=== PATIENT | male | born 1990 | race Caucasian/White ===

== ENCOUNTER 2025-05-19 17:38 | Observation (INO) | payer BC, SELFPAY ==
[2025-05-19 17:39] VITALS: BMI 43.7
--- NOTE | 2025-05-19 17:43 | EKG_ITS ---
[facility] Test Date: 2025-05-19 Pat Name: ALEJANDRO CESPEDES Department: Room: - Gender: Male Database Security Expert: : [id number] Requested By: Romy Garcia Order Number: [id number] Reading MD: Romy Garcia Measurements Intervals [place] Rate: 90 P: 44 NH: 156 QRS: 23 QRSD: 86 T: 38 QT: 362 QTc: 444 Interpretive Statements SINUS RHYTHM LOW QRS VOLTAGE IN PRECORDIAL LEADS [QRS DEFLECTION < 1.0 mV IN CHEST LEADS] No previous ECG available for comparison /[id number]/[email or web address]/[id number]
[2025-05-19 17:49] VITALS: BP 150/83; BP 186/118; PULSE 103; RESP 26; TEMP 36.7; O2SAT 100
--- NOTE | 2025-05-19 17:50 | XR_ITS ---
Examination: CTA chest, with intravenous contrast. CTA abdomen, with intravenous contrast. CTA pelvis, with intravenous contrast. 2-D sagittal and coronal reconstructions. 3-D reconstructions. Date and time of exam: May 19, 2025, 1838 hours INDICATIONS: Chest pain flank pain right lower abdominal pain today CTDI vol (mgy) 47.8 DLP (MGycm) 1157 Technique: Multiple CTA images, 2.0 mm slice thickness, obtained chest, abdomen, pelvis, with the high-resolution 64 slice scanner. 100 cc Isovue-370 is administered intravenously. Sagittal and coronal 2-D reconstructions are obtained. 3-D reconstructions, angiographic images are obtained. 3-D postprocessing, including vascular maximum intensity projections. Low dose protocols were performed. One or more of the following dose reduction techniques were used; automated exposure control, adjustment of the mA and/or KV according to patient size, use of iterative reconstruction technique. Findings: No thoracic aortic aneurysm dilatation or dissection Pulmonary artery segments are not enlarged. No pulmonary artery filling defects No paratracheal or tracheobronchial or bronchopulmonary adenopathy 4 mm pulmonary nodule left lower lobe image 263 6 mm pulmonary nodule right lower lobe image 316 No pneumonia pulmonary edema or pleural disease Hepatomegaly 22 cm with fatty infiltration throughout the liver Absent gallbladder Spleen is not enlarged No pancreatic or adrenal mass No renal or ureteral calculi Linear opacities which may represent embolization material anterior to the left psoas muscle, extending into the pelvis into a fat-containing inguinal hernia on the left Aorta normal size Normal appendix No bowel obstruction or diverticulitis Scattered colonic diverticulosis Contracted urinary bladder No prostatomegaly Colon shows mild diffuse inflammatory change Moderate disc narrowing at the lower 3 lumbar levels IMPRESSION: No thoracic aortic aneurysm dilatation Negative for pulmonary artery emboli Noncalcified pulmonary nodules as above, suggest 6-month follow-up PA lateral chest x-ray Hepatomegaly with diffuse fatty infiltration No renal or ureteral calculi, no hydronephrosis Normal appendix Mild nonspecific diffuse colitis pattern
--- NOTE | 2025-05-19 17:53 | EDNOTE_ITS ---
ED Abdominal Pain RME/HPI General Chief Complaint: Abdominal Pain Stated complaint: RT SIDE FLANK PAIN WITH SWEATING Time seen by provider: 05/19/25 17:53 Arrival date/time: 05/19/25 17:38 Source: patient and family Mode of arrival: ambulatory Limitations: no limitations RME / HPI RME / HPI narrative: Patient is a 35-year-old male with no significant past medical history that is in Emergency Department concerns for right sided lower tearing flank pain that radiates anteriorly to his abdomen. Patient states that symptoms started after he got off work. 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 Denies chest pain shortness of breath, palpitations, dysuria, hematuria, melena, bloody stools. No drugs, no recent alcohol, no smoking. Denies any surgeries to his belly. Patient has had surgeries to his neck in the past. No trauma Patient has a history of prior neck surgeries, cholecystectomy as well as a coil type device that was placed in the left side of his abdomen because of what he describes as having too much blood flow to 1 testicle at 1 point and so this device was placed. Unclear what it is. Related Data Previous Rx's ?Medication ?Instructions ?Recorded amoxicillin 875 mg-potassium 1 tab PO BID #14 tabs clavulanate 125 mg tablet Allergies Allergy/AdvReac Type Severity Reaction Status Date / Time erythromycin base Allergy Verified 05/19/25 17:41 ED Exam General Limitations: Present no limitations General appearance: Present in distress and other Head Head exam: Present atraumatic and normocephalic Eye Eye exam: Present normal appearance, PERRL and EOMI ENT ENT exam: Present normal exam and normal oropharynx Neck Neck exam: Present normal inspection; Absent lymphadenopathy Chest Chest inspection: Present normal inspection and symmetric chest wall rise Respiratory Respiratory exam: Present normal lung sounds bilaterally; Absent respiratory distress Cardiovascular Cardiovascular exam: Present normal rhythm and tachycardia Abdominal Exam Abdominal exam: Present soft and tenderness (Tenderness palpation in the right lower quadrant, no rebound no guarding; patient with severe right flank tenderness to palpation); Absent distention Extremities Exam Extremities exam: Present normal inspection; Absent tenderness Back Exam Back exam: Present normal inspection Neurological Exam Neurological exam: Present alert and other (No focal neurodeficits) Psychiatric Psychiatric exam: Present other Skin Skin exam: Present warm, intact and diaphoresis Course Orders Category Date Time Status CT Screening NOW Care 05/19/25 17:51 Active EKG (ED ONLY) *Do not use* NOW Care 05/19/25 17:[address] angio chest abdomen pelvis Stat Exams 05/19/25 17:50 Completed EKG (ED Only) Stat Exams 05/19/25 17:43 Draft Blood Culture (Lab) Stat Lab 05/19/25 19:50 Received CBC Stat Lab 05/19/25 18:06 Completed CMP [Comprehensive Metabolic Panel] Stat Lab 05/19/25 18:06 Completed Drug Screen,Urine Stat Lab 05/19/25 17:52 Ordered Lactic Acid [Lactate (Lactic Acid)] Stat Lab 05/19/25 20:15 Completed PT [Prothrombin Time with INR] Stat Lab 05/19/25 18:06 Completed T4 (Thyroxine) Stat Lab 05/19/25 18:06 Completed TSH [Thyroid Stimulating Hormone] Stat Lab 05/19/25 18:06 Completed Troponin I Stat Lab 05/19/25 18:06 Completed Troponin I Stat Lab 05/19/25 20:15 Completed UA, C/S IF [Urinalysis, C/S if Indicated] Stat Lab 05/19/25 17:52 Ordered HYDROmorphone INJ [Dilaudid Inj] Med 05/19/25 18:23 Discontinued 1 mg IVP X1 ONE HYDROmorphone INJ [Dilaudid Inj] Med 05/19/25 18:44 Discontinued 1 mg IVP X1 ONE HYDROmorphone INJ [Dilaudid Inj] Med 05/19/25 19:46 Discontinued 1 mg IVP X1 ONE HYDROmorphone INJ [Dilaudid Inj] Med 05/19/25 18:43 Discontinued 2 mg IVP X1 ONE Morphine* Inj Med 05/19/25 17:50 Discontinued 4 mg IV STAT STA Piper/Tazo Inj [Zosyn Inj] 4.5 gm Med 05/19/25 19:47 Discontinued Sodium Chloride 0.9% (Pop) [NS 0.9% mini bag] 100 ml IV X1 Ringers Lactated 1000 ml [Lactated Ringers] 1,000 ml Med 05/19/25 17:51 Discontinued IV 999 mls/hr Ringers Lactated 1000 ml [Lactated Ringers] 1,000 ml Med 05/19/25 19:59 Discontinued IV 999 mls/hr fentaNYL INJ [Sublimaze Inj] Med 05/19/25 18:44 Discontinued 100 mcg IVP X1 ONE fentaNYL INJ [Sublimaze Inj] Med 05/19/25 19:32 Discontinued 100 mcg IVP X1 ONE metroNIDAZOLE/NS 500 MG IVPB [Flagyl 500 mg IV] Med 05/19/25 19:43 Discontinued 500 mg in 100 ml IV STAT Vital Signs Vital signs: Vital Signs Temperature 98.0 F 05/19/25 17:49 Pulse Rate 103 H 05/19/25 17:49 Respiratory Rate 26 H 05/19/25 17:49 Blood Pressure 186/118 H 05/19/25 17:49 Pulse Oximetry (%) 100 05/19/25 17:49 Oxygen Delivery Method Room Air 05/19/25 17:49 Abdominal Pain MDM MDM Narrative MDM Narrative:: Patient is a 35-year-old male seen in the emergency primary with acute onset right-sided back pain radiating anteriorly, diaphoresis and hypertension. Vital signs and exam as listed. Patient presented in severe pain, hypertensive systolic blood pressure greater than 180, diaphoretic. Concern for aortic dissection, ACS, urolithiasis, appendicitis, obstruction among others. Ordered stat IV, medication for symptom relief, CT angio of the chest abdomen pelvis to look for dissection, appendicitis, other acute abdominal pathology. also ordered labs. Patient was taken emergently to the CT scan without labs given this concern. Patient not septic. Labs with leukocytosis 13.3, no left shift, hemoglobin 16.2. Normal coags, no acute electrolyte abnormalities. Patient has mild transaminitis AST 51, ALT 94, normal T. bili. Alk phos normal. Troponin not elevated. EKG performed today at 1753 notable for sinus rhythm, heart rate 90, normal intervals, nonspecific T wave changes, not a cardiac alert. Will order repeat troponin. Patient TSH is mildly elevated at 5.48. T4 within normal limits. CT scan of the chest abdomen pelvis without evidence of aortic aneurysm, dilatation or dissection. No evidence of pulmonary embolus. Patient does have a 4 mm pulmonary nodule in the left as well as a 6 mm pulmonary nodule on the right. No evidence of pneumonia or lung disease. Patient does have fatty liver, and enlarged liver. Patient does not have a gallbladder. Patient does not have any right upper quadrant abdominal pain. No evidence of any kidney stones, there is no linear opacity there appears to be embolization material anterior to the left psoas muscle extending into the pelvis intra fat-containing inguinal hernia on the left. No evidence of obstruction or diverticulitis. Patient does have scattered colonic diverticulosis. Colon shows diffuse inflammatory change. Concerning for colitis. Given patient's leukocytosis, severe pain will provide patient with antibiotics. Will also order blood cultures. Given patient met SIRS criteria on presentation, his severe presentation, I did consult hospitalist team for admission. Hospitalist team kindly excepted patient for admission Patient data External records reviewed:: None Clinical information provided by:: family Social determinants that could affect healthcare access:: none Patient has the following chronic illnesses:: None How is presenting disease/condition affected by chronic disease/condition?: no chronic disease Evaluation data The following diagnostics were reviewed and interpreted by me:: lab results, radiology exam(s) and EKG tracing(s) Lab and/or radiology exams considered but not ordered:: None Interpretation Summary: See MDM Medications / Prescriptions Medications or Prescriptions considered but not ordered:: None Medication administrations:: Medication Administration History Discontinued Medications Fentanyl Citrate (Fentanyl Cit Inj 50 Mcg/Ml Amp 2ml) 100 mcg IVP X1 ONE Stop: 05/19/25 18:45 Last Admin: 05/19/25 18:49 Dose: 100 mcg Documented By: GM Fentanyl Citrate (Fentanyl Cit Inj 50 Mcg/Ml Amp 2ml) 100 mcg IVP X1 ONE Stop: 05/19/25 19:33 Last Admin: 05/19/25 19:42 Dose: 100 mcg Documented By: AC Hydromorphone HCl (Hydromorphone Inj 2 Mg/Ml Vial) 1 mg IVP X1 ONE Stop: 05/19/25 18:24 Last Admin: 05/19/25 18:27 Dose: 1 mg Documented By: EPHRAIM Hydromorphone HCl (Hydromorphone Inj 2 Mg/Ml Vial) 2 mg IVP X1 ONE Stop: 05/19/25 18:44 Hydromorphone HCl (Hydromorphone Inj 2 Mg/Ml Vial) 1 mg IVP X1 ONE Stop: 05/19/25 18:45 Hydromorphone HCl (Hydromorphone Inj 2 Mg/Ml Vial) 1 mg IVP X1 ONE Stop: 05/19/25 19:47 Last Admin: 05/19/25 20:28 Dose: 1 mg Documented By: MICHAEL Comments: Lactated Ringer's (Lactated Ringers) 1,000 mls @ 999 mls/hr IV .Q1H1M ONE Stop: 05/19/25 18:51 Last Infusion: 05/19/25 20:02 Dose: Infused Documented By: Admin: 05/19/25 18:18 Dose: 999 mls/hr Documented By: EPHRAIM Metronidazole (Flagyl 500 Mg Iv) 500 mg in 100 mls @ 200 mls/hr IV STAT STA Stop: 05/19/25 20:12 Piperacillin Sod/Tazobactam (Sod 4.5 gm/ Sodium Chloride) 100 mls @ 200 mls/hr IV X1 ONE; Protocol Stop: 05/19/25 20:16 Last Admin: 05/19/25 20:41 Dose: 200 mls/hr Documented By: MICHAEL Lactated Ringer's (Lactated Ringers) 1,000 mls @ 999 mls/hr IV .Q1H1M ONE Stop: 05/19/25 20:59 Last Admin: 05/19/25 20:31 Dose: 999 mls/hr Documented By: MICHAEL Morphine Sulfate (Morphine Sulf Inj 4 Mg/Ml Vial) 4 mg IV STAT STA Stop: 05/19/25 17:51 Last Admin: 05/19/25 18:15 Dose: 4 mg Documented By: EPHRAIM See above Consultations Consultation(s) initiated? (list below): Yes Diagnosis Differential diagnosis abdominal pain: other (See MDM) Most likely diagnosis given after review of the tests above:: Abdominal pain, colitis, diverticulosis, tachycardia, hypotension Admission Indicated Admission indicated?: indicated Admission Request Was there a request for admission?: Yes Admission Attestation Admission request attestation: Discussed case with Hospitalist service regarding admission. Discussed patients ED course, exam findings, labs, and radiology results. The Hospitalist [agrees] to accept the patient for admission. Disposition Plan Disposition Plan: Admit Critical Care Time Critical Care Time Critical Care Time: Yes Total Critical Care Time (min.): 60 Attestation: Due to a high probability of clinically significant, life threatening deterioration, the patient required my highest level of preparedness to intervene emergently and I personally spent this critical care time directly and personally managing the patient. This critical care time included obtaining a history; examining the patient; pulse oximetry; ordering and review of studies; arranging urgent treatment with development of a management plan; evaluation of patient's response to treatment; frequent reassessment; and, discussions with other providers. This critical care time was performed to assess and manage the high probability of imminent, life-threatening deterioration that could result in multi-organ failure. It was exclusive of separately billable procedures and treating other patients and teaching time. Please see MDM section and the rest of the note for further information on patient assessment and treatment. Discharge Plan Prescriptions/Referrals Prescriptions/Med Rec: No Action amoxicillin-pot clavulanate 875-125 mg tablet 1 tab PO BID Qty: 14 0RF Referrals: Teresa Carranza MD [Primary Care Provider, Family Practice] - In 1 week Patient/Caregiver Discharge Instructions Print Language: Tanzanian
--- NOTE | 2025-05-19 18:00 | PC.NURSE ---
PER DR. FUENTES, PT OK TO GO TO CT WITHOUT LAB RESULTS AT THIS TIME; CONCERNED FOR POSSIBLE DISSECTION AT THIS TIME.
[2025-05-19] MEDS: MORPHINE SULF INJ 4 MG/ML VIAL IV (18:15)
[2025-05-19] MEDS: RINGERS LACTATED 1000 ML 1,000 ML 999 ML IV ×2 (18:18→20:31)
[2025-05-19] MEDS: HYDROmorphone INJ 2 MG/ML VIAL 1 MG IVP ×2 (18:27→20:28)
[2025-05-19 18:28] LABS: Basophils # (Auto) 0.1 Thou/mm3 (0.0-0.2); Basophils % (Auto) 1 % (0-2.5); Eosinophils # (Auto) 0.2 Thou/mm3 (0.0-0.5); Eosinophils % (Auto) 1 % (0-10); Hematocrit 48.5 % (41.0-53.0); Hemoglobin 16.2 g/dL (13.5-16.0); Immature Granulocytes Auto 0.05 Thou/mm3 (0.00-0.00); Lymphocytes # (Auto) 5.5 Thou/mm3 (1.0-4.8); Lymphocytes % (Auto) 41 % (10-50); Mean Corpuscular HGB Conc 33.4 g/dl (31.0-37.0); Mean Corpuscular Hemoglobin 26.8 pg (25.0-35.0); Mean Corpuscular Volume 80 fL (80-100); Monocytes # (Auto) 1.3 Thou/mm3 (0.0-0.8); Monocytes % (Auto) 10 % (0-12); Neutrophils # (Auto) 6.2 Thou/mm3 (1.8-7.7); Neutrophils % (Auto) 46 % (37-80); Nucleated Red Blood Cell # 0.00 Thou/mm3 (0.00-0.00); Nucleated Red Blood Cell % 0 /100 WBC (0); Platelet Count 379 Thou/mm3 (140-440); RDW Standard Deviation 36.2 fL (35.1-43.9); Red Blood Count 6.05 Miln/mm3 (4.50-5.90); White Blood Count 13.3 Thou/mm3 (3.8-10.6)
[2025-05-19 18:41] LABS: INR 1.0 (0.9-1.3); Prothrombin Time 10.5 Seconds (9.0-12.2)
[2025-05-19] MEDS: fentaNYL CIT INJ 50 mCg/ML AMP 2ML 100 MCG IVP ×2 (18:49→19:42)
[2025-05-19 18:51] LABS: Alanine Aminotransferase 94 U/L (10-49); Albumin, Serum 5.4 gm/dL (3.5-5.0); Albumin/Globulin Ratio 2.1 (1.2-2.2); Alkaline Phosphatase 72 U/L (46-116); Anion Gap 16 (7-16); Aspartate Amino Transferase 51 U/L (0-34); BUN/Creatinine Ratio 11 Ratio (12-20); Bilirubin,Total 0.4 mg/dL (0.3-1.2); Blood Urea Nitrogen 13 mg/dL (9-23); Calcium 10.0 mg/dL (8.3-10.6); Calcium (Corrected) 10.0 mg/dL (8.5-10.1); Carbon Dioxide 24.5 mMol/L (20.0-31.0); Chloride 101 mMol/L (98-107); Creatinine (Component) 1.2 mg/dL (0.6-1.3); Estimated Creatinine Clearance 140.1 mL/min (>60); Globulin 2.6 gm/dL (2.3-3.5); Glucose 132 mg/dL (74-106); Osmolality,Calculated 283 (275-295); Potassium 3.7 mMol/L (3.4-5.1); Sodium 141 mMol/L (136-145); Thyroid Stimulating Hormone 5.48 uIU/mL (0.55-4.78); Total Protein 8.0 gm/dL (5.7-8.2); Troponin I < 0.002 ng/mL (0.0-0.045); eGFR > 60 See Note
[2025-05-19 18:52] LABS: T4 (Thyroxine) 7.3 mcg/dL (4.5-10.9)
[2025-05-19 19:36] VITALS: BP 195/131; PULSE 84; RESP 20; O2SAT 97
[2025-05-19 20:28] LABS: Lactate (Lactic Acid) 1.7 mMol/L (0.4-2.0)
[2025-05-19] MEDS: PIPER/TAZO INJ 4.5 GM in SODIUM CHLORIDE 0.9% (POP) 100 ML IV (20:41)
[2025-05-19 20:52] LABS: Troponin I < 0.002 ng/mL (0.0-0.045)
[2025-05-19 21:16] VITALS: BP 139/106; PULSE 89; RESP 19; TEMP 36.7; O2SAT 91
[2025-05-19 21:38] LABS: Collection Type, Urine Clean Catch; Squamous Epithelial Cell,Urine 0 /hpf (0-5)
[2025-05-19 21:52] LABS: Bilirubin,Urine Negative (Negative); Blood,Urine 2+ (Negative); Clarity,Urine Clear (Clear/Hazy); Color,Urine Lt-Yellow (Lt Yel-Yel); Culture Indicated,Urine Not Indicated; Glucose, Urine Negative (Negative); Ketones,Urine Negative (Negative); Leukocyte Esterase,Urine Negative (Negative); Nitrite,Urine Negative (Negative); PH,Urine 6.5 (5.0-7.0); Protein,Urine Negative (Neg - Trace); RBC,Urine 95 /hpf (0-3); Specific Gravity,Urine 1.050 (1.001-1.035); Urobilinogen,Urine Negative mg/dL (0.0-1.0); WBC,Urine 2 /hpf (0-5)
[2025-05-19 22:02] LABS: Amphetamine/Methamp Scrn,U Negative (Negative); Barbiturate Screen,Urine Negative (Negative); Benzodiazepines Screen,Urine Negative (Negative); Benzoylecgonine Screen, Ur Negative (Negative); Fentanyl Screen,Urine Positive (Negative); Opiate Screen,Urine Positive (Negative); THC Screen,Urine Negative (Negative)
--- NOTE | 2025-05-19 22:37 | PD.RESHP ---
Documentation for date of: 05/19/25 [facility] History of Present Illness History of present illness: Mr. Patel is a 35 y/o male with PMH multiple neck/spinal surgeries, HTN who presents with throbbing right sided lower flank pain that radiates anteriorly to abdomen and posteriorly to back. Sudden onset, associated with diaphoresis, difficulty taking a deep breath 2/2 pain. Not associated with specific activity or rest. Denies recent trauma, weight lifting, change in activities. Denies N/V, diarrhea, constipation, chest pain/pressure, shortness of breath, palpitations, headache, acute change in vision. Does not check his BP at home. PCP: Dr. Carranza No specialists ED course: Afebrile. HR 103, RR 26, BP 186/118 --> 195/131. Labs significant for WBC 13.3, hgb 16.2, AST 51, ALT 94, TSH 5.48. Coag, troponin x2, T4, lactic acid WNL. Met SIRS criteria. UA 2+ blood, 95 RBC. UDS + opiates and fentanyl (given in ED). Pending blood cx. EKG NSR HR 90, QTc 444. CTA c/a/p mild nonspecific diffuse colitis pattern. Scattered colonic diverticulosis. Linear opacities may represent embolization anterior to left psoas extending into pelvis into a fat-containing inguinal hernia on left. Noncalcified pulmonary nodules 4 mm LLL and 5 mm RLL. Hepatomegaly with fatty infiltration. No renal or ureteral calculi, normal appendix, no thoracic aortic aneurysm dilation or dissection, no pancreatic or adrenal mass, no bowel obstruction or diverticulitis. Contracted urinary bladder. No PE. Given morphine 4 mg IV, 2L LR, dilaudid 1 mg IV x2, fentanyl 100 mcg IV x2, Zosyn 4 mg IV x1. PMHx: HTN Allergies: Azithromycin, erythromycin Home meds: Losartan 25 mg PO daily Duloxetine 60 mg PO daily Singulair PRN Meloxicam PRN SgHx: Muntiple neck surgeries, laminoplasty C3-C5, nerve ablation in neck Ankle surgery Tonsillectomy Deviated septum repair Scapulothoracic arthroscopy Cholecystectomy Coil type device that was placed in the left side of his abdomen because of what he describes as having too much blood flow to left testicle SHx: Denies tobacco, recreational drug use. Occasional EtOH use FHx: Review of Systems Review of Systems Narrative Review of Systems: 14 point ROS negative other than HPI Exam Vital Signs Temp Pulse Resp BP Pulse Ox O2 Del Method 98.1 F 89 19 139/106 H 91 L Room Air 05/19/25 21:16 05/19/25 21:16 05/19/25 21:16 05/19/25 21:16 05/19/25 21:16 05/19/25 21:16 Narrative Exam General: No acute distress, well nourished Eye: PERRL, EOMI, normal conjunctiva, no scleral icterus HENT: Normocephalic, atraumatic, normal hearing, moist oral mucosa Neck: Supple, non-tender, no JVD, no lymphadenopathy Lungs: Clear to auscultation bilaterally, non-labored respirations, symmetric chest rise, no use of accessory muscles Heart: Normal S1 and S2, no S3 or S4 appreciated. Normal rate and regular rhythm, no murmurs, rubs gallops, or edema. Peripheral pulses intact bilaterally, capillary refill brisk distally Abdomen: Soft, nondistended. TTP of right lower flank, RLQ, and right lower back. No CVA tenderness. Mild discomfort with right leg raise, no discomfort with left leg raise Musculoskeletal: Normal range of motion and strength, no tenderness or swelling Skin: Skin is warm, dry, no rashes or lesions. Neurologic: Alert, awake and oriented x3. CN II-XII grossly intact. No focal neuro deficits. No signs of meningeal irritation noted. Psychiatric: Cooperative, appropriate mood and affect Results: Labs 05/19/25 18:06 05/19/25 18:06 Labs: Short CBC 05/19/25 Range/Units 18:06 WBC 13.3 H (3.8-10.6) Thou/mm3 Hgb 16.2 H (13.5-16.0) g/dL Hct 48.5 (41.0-53.0) % Plt Count 379 (140-440) Thou/mm3 BMP 05/19/25 18:06 Sodium 141 Potassium 3.7 Chloride 101 Carbon Dioxide 24.5 BUN 13 Creatinine 1.2 Glucose 132 H Calcium 10.0 Cardiac Enzymes 05/19/25 05/19/25 Range/Units 18:06 20:15 Troponin I < 0.002 < 0.002 (0.0-0.045) ng/mL Liver Function 05/19/25 Range/Units 18:06 Total Bilirubin 0.4 (0.3-1.2) mg/dL AST 51 H (0-34) U/L ALT 94 H (10-49) U/L Alkaline Phosphatase 72 (46-116) U/L Albumin 5.4 H (3.5-5.0) gm/dL Urine 05/19/25 Range/Units 21:02 Urine Color Lt-Yellow (Lt Yel-Yel) Urine Clarity Clear (Clear/Hazy) Urine pH 6.5 (5.0-7.0) Ur Specific [employer] [facility] 1.050 H (1.001-1.035) Urine Protein Negative (Neg - Trace) Urine Glucose (UA) Negative (Negative) Quality Measures Quality Measures VTE prophylaxis Medications Home Medications and Allergies Allergies Allergy/AdvReac Type Severity Reaction Status Date / Time erythromycin base Allergy Verified 05/19/25 17:41 Visit Medications Acetaminophen (Acetaminophen 325 Mg Tablet) 650 mg PO Q6H PRN PRN Reason: Fever >100.3 Stop: 06/18/25 21:18 Acetaminophen (Acetaminophen 325 Mg Tablet) 650 mg PO Q6H PRN PRN Reason: PAIN SCALE 1-3 (mild Stop: 06/18/25 21:18 Heparin Sodium (Porcine) (Heparin Sod Inj 5000 Unit/Ml Vial) 5,000 unit SC Q8HR RAMSEY Stop: 06/02/25 21:59 Ondansetron HCl (Ondansetron Inj 2 Mg/Ml Inj 2 Ml) 4 mg IVP Q6H PRN; Protocol PRN Reason: NAUSEA OR VOMITING Stop: 06/18/25 21:18 Discontinued Medications Fentanyl Citrate (Fentanyl Cit Inj 50 Mcg/Ml Amp 2ml) 100 mcg IVP X1 ONE Stop: 05/19/25 18:45 Last Admin: 05/19/25 18:49 Dose: 100 mcg Fentanyl Citrate (Fentanyl Cit Inj 50 Mcg/Ml Amp 2ml) 100 mcg IVP X1 ONE Stop: 05/19/25 19:33 Last Admin: 05/19/25 19:42 Dose: 100 mcg Hydromorphone HCl (Hydromorphone Inj 2 Mg/Ml Vial) 1 mg IVP X1 ONE Stop: 05/19/25 18:24 Last Admin: 05/19/25 18:27 Dose: 1 mg Hydromorphone HCl (Hydromorphone Inj 2 Mg/Ml Vial) 2 mg IVP X1 ONE Stop: 05/19/25 18:44 Hydromorphone HCl (Hydromorphone Inj 2 Mg/Ml Vial) 1 mg IVP X1 ONE Stop: 05/19/25 18:45 Hydromorphone HCl (Hydromorphone Inj 2 Mg/Ml Vial) 1 mg IVP X1 ONE Stop: 05/19/25 19:47 Last Admin: 05/19/25 20:28 Dose: 1 mg Lactated Ringer's (Lactated Ringers) 1,000 mls @ 999 mls/hr IV .Q1H1M ONE Stop: 05/19/25 18:51 Last Infusion: 05/19/25 20:02 Dose: Infused Metronidazole (Flagyl 500 Mg Iv) 500 mg in 100 mls @ 200 mls/hr IV STAT STA Stop: 05/19/25 20:12 Piperacillin Sod/Tazobactam (Sod 4.5 gm/ Sodium Chloride) 100 mls @ 200 mls/hr IV X1 ONE; Protocol Stop: 05/19/25 20:16 Last Infusion: 05/19/25 21:21 Dose: Infused Lactated Ringer's (Lactated Ringers) 1,000 mls @ 999 mls/hr IV .Q1H1M ONE Stop: 05/19/25 20:59 Last Infusion: 05/19/25 21:32 Dose: Infused Morphine Sulfate (Morphine Sulf Inj 4 Mg/Ml Vial) 4 mg IV STAT STA Stop: 05/19/25 17:51 Last Admin: 05/19/25 18:15 Dose: 4 mg Assessment & Plan Plan Mr. Patel is a 35 y/o male with PMH multiple neck/spinal surgeries, HTN who presents with sudden onset throbbing right sided lower flank pain that radiates anteriorly to abdomen and posteriorly to back. Admitted to obs for pain management and continued SIRS workup for source of infection. #Flank pain Sudden in onset, associated with diaphoresis, radiates anteriorly to abdomen and posteriorly to back. CTA c/a/p mild nonspecific diffuse colitis pattern. Scattered colonic diverticulosis. Linear opacities may represent embolization anterior to left psoas extending into pelvis into a fat-containing inguinal hernia on left. No renal or ureteral calculi, normal appendix, no thoracic aortic aneurysm dilation or dissection, no pancreatic or adrenal mass, no bowel obstruction or diverticulitis. Contracted urinary bladder. No PE. Physical exam not c/w psoas abscess Given morphine 4 mg IV, 2L LR, dilaudid 1 mg IV x2, fentanyl 100 mcg IV x2, Zosyn 4 mg IV x1. DDX: colitis, renal infarction, muscle spasm, herpes zoster (pre-eruptive) Findings not c/w pyelonephritis, radiculopathy, aortic dissection, appendicitis. Hx cholecystectomy Plan: - Pain management: Tylenol PO PRN, morphine 2 mg IV q6h PRN - Antibiotics as below for potential #Hypertension urgency vs emergency BP 186/118 --> 195/131 (MAP 152) Most likely 2/2 pain. Given morphine 4 mg IV, dilaudid 1 mg IV x2, fentanyl 100 mcg IV x2. Improvement in BP after pain management End organ damage may be evidenced by hematuria Plan: - Losartan 25 mg PO daily - MAP goal: Reduce MAP gradually by ~10%-20% over first hour, then by additional 5-15% over next 23 hours, unless there is a compelling indication (ie. acute aortic dissection, severe preeclampsia, eclampsia) for more rapid BP and HR control. - Labetalol IV 10-20 mg over 1-2 minutes followed by 20-80 mg q10min until target BP reached. - Pain management: Tylenol PRN, morphine 2 mg IV q6h PRN #Sepsis HR 103, RR 26, WBC 13.3 UA negative for UTI. CT showed mild colitis pattern. Lactic acid WNL. End organ damage may be evidenced by hematuria 2L LR given in ED. 30 cc/kg not given 2/2 HTN urgency vs emergency May be 2/2 colitis Plan: - CTM vitals - Pending blood cx - Ciprofloxacin 400 mg q12h IV and Metronidazole 500 mg q8h IV for possible abdominal infection/colitis as source #Microscopic hematuria UA 2+ blood, 95 RBC Kidney function WNL. Denies urinary sx Plan: - CTM hgb with daily CBC, gross hematuria #Obesity BMI 43 Plan: - Pending A1C, lipid panel #Noncalcified pulmonary nodules 4 mm LLL and 5 mm RLL Seen in CT c/a/p Incidental finding Plan: - f/u outpatient #Hepatomegaly Fatty infiltrates Plan: - f/u outpatient Checklist Dispo: Admit to obs Diet: regular Bowel Reg: n/a VTE ppx: heparin subQ GI ppx: n/a Pain mgmt: Tylenol PRN, morphine 2 mg IV q6h PRN Code status: full Plan discussed with Dr. Ordonez and Dr. Jessica Patricia MD PGY1 Attending Provider Attestation/Addendum This is a 35-year-old morbidly obese male patient. The patient was admitted for acute severe right flank pain and uncontrolled blood pressure. The patient has high white count. No history of kidney stones. He has no gross hematuria but UA showed 95 RBC and 2+ blood. Most likely has flank pain from kidney stones. imaging ( however was done with contrast, renal stones can be obscured with contrast,) is unremarkable apart except for possible colitis but he has only flank pain and no diarrhea. The patient will be admitted for further workup and treatment. Will check blood uric acid level. He will receive pain medications. I discussed with and supervised the resident physician who took care of this patient. I agree with the assessment and plan as above.
[2025-05-19] MEDS: HEPARIN SOD INJ 5000 UNIT/ML VIAL SC (22:40)
[2025-05-19] MEDS: ACETAMINOPHEN 325 MG TABLET 650 MG PO (22:52)
[2025-05-19] MEDS: METOCLOPRAMIDE INJ 5 MG/ML VIAL 2 ML IVP (23:54)
[2025-05-19] MEDS: CIPROFLOXACIN/D5w 400 MG IVPB 400 MG/200 ML BAG 200 MG IV (23:59)
[2025-05-20] VITALS (7 sets, daily range): BP systolic 104–131; BP diastolic 80–103; PULSE 73–107; RESP 16–18; TEMP 36.1–36.3; O2SAT 92–98; BMI 46.6
[2025-05-20] MEDS: metroNIDAZOLE/NS 500 MG IVPB 500 MG/100 ML BAG 200 MG IV ×2 (00:11→09:07)
[2025-05-20 01:50] LABS: Path Review Blood Smear Sent to Pathologist
[2025-05-20] MEDS: TAMSULOSIN HCL 0.4 MG CAPSULE PO (02:00)
[2025-05-20] MEDS: RINGERS LACTATED 1000 ML 1,000 ML 125 ML IV (02:00)
--- NOTE | 2025-05-20 04:27 | PC.NURSE ---
Pt is asleep at this time, no C/O of pain.
[2025-05-20] MEDS: HEPARIN SOD INJ 5000 UNIT/ML VIAL SC (05:27)
[2025-05-20 05:46] LABS: Basophils # (Auto) 0.0 Thou/mm3 (0.0-0.2); Basophils % (Auto) 0 % (0-2.5); Eosinophils # (Auto) 0.0 Thou/mm3 (0.0-0.5); Eosinophils % (Auto) 0 % (0-10); Hematocrit 43.6 % (41.0-53.0); Hemoglobin 14.4 g/dL (13.5-16.0); Immature Granulocytes Auto 0.03 Thou/mm3 (0.00-0.00); Lymphocytes # (Auto) 2.1 Thou/mm3 (1.0-4.8); Lymphocytes % (Auto) 19 % (10-50); Mean Corpuscular HGB Conc 33.0 g/dl (31.0-37.0); Mean Corpuscular Hemoglobin 26.9 pg (25.0-35.0); Mean Corpuscular Volume 81 fL (80-100); Monocytes # (Auto) 1.1 Thou/mm3 (0.0-0.8); Monocytes % (Auto) 10 % (0-12); Neutrophils # (Auto) 7.9 Thou/mm3 (1.8-7.7); Neutrophils % (Auto) 70 % (37-80); Nucleated Red Blood Cell # 0.00 Thou/mm3 (0.00-0.00); Nucleated Red Blood Cell % 0 /100 WBC (0); Platelet Count 269 Thou/mm3 (140-440); RDW Standard Deviation 37.3 fL (35.1-43.9); Red Blood Count 5.36 Miln/mm3 (4.50-5.90); White Blood Count 11.2 Thou/mm3 (3.8-10.6)
[2025-05-20 06:15] LABS: Alanine Aminotransferase 82 U/L (10-49); Albumin, Serum 4.5 gm/dL (3.5-5.0); Albumin/Globulin Ratio 2.0 (1.2-2.2); Alkaline Phosphatase 59 U/L (46-116); Anion Gap 12 (7-16); Aspartate Amino Transferase 44 U/L (0-34); BUN/Creatinine Ratio 7 Ratio (12-20); Bilirubin,Total 0.6 mg/dL (0.3-1.2); Blood Urea Nitrogen 7 mg/dL (9-23); Calcium 9.1 mg/dL (8.3-10.6); Calcium (Corrected) 9.1 mg/dL (8.5-10.1); Carbon Dioxide 24.3 mMol/L (20.0-31.0); Cardiac Risk Estimate 5.1 RATIO (4.0-6.7); Chloride 102 mMol/L (98-107); Cholesterol 199 mg/dL (132-200); Creatinine (Component) 1.0 mg/dL (0.6-1.3); Estimated Creatinine Clearance 174.4 mL/min (>60); Globulin 2.2 gm/dL (2.3-3.5); Glucose 120 mg/dL (74-106); HDL Cholesterol 39 mg/dL (40-60); LDL Cholesterol,Calculated 131 mg/dL (0-130); Magnesium 2.1 mg/dL (1.6-2.6); Osmolality,Calculated 274 (275-295); Phosphorous 4.9 mg/dL (2.4-5.1); Potassium 4.1 mMol/L (3.4-5.1); Sodium 138 mMol/L (136-145); Thyroid Stimulating Hormone 2.17 uIU/mL (0.55-4.78); Total Protein 6.7 gm/dL (5.7-8.2); Triglycerides 145 mg/dL (30-150); Uric Acid 5.9 mg/dL (3.7-9.2); eGFR > 60 See Note
[2025-05-20 06:36] LABS: Glucose Estimated Average 117 mg/dL (80-131); Hemoglobin A1C 5.7 % Hgb (4.8-6.0)
[2025-05-20] MEDS: LOSARTAN POTASSIUM 25 MG TABLET PO (09:08)
[2025-05-20] MEDS: CIPROFLOXACIN/D5w 400 MG IVPB 400 MG/200 ML BAG 200 MG IV (09:08)
--- NOTE | 2025-05-20 10:56 | ESDS_ITS ---
<Statement entered by Delgado Shore MD - 05/25/25 08:34> I reviewed above note and agree with findings and plans. I have also personally examined the patient with medicine team and went over assessment and plan with medical team including risk management intern and resident physician. Planned Discharge Date 05/20/25 DS: Providers Provider Date of admission: 05/19/25 21:19 Primary care physician: Teresa Carranza MD Admitting Provider: Keny Lopez MD Attending Provider on Admission: Delgado Shore MD Attending Provider on DC: Tennille Hoover DO Discharging Provider: Tennille Hoover DO DS: Diagnosis Problem List Completed Was Problem List Reviewed/Reconciled?: Yes Hospital Course Hospital Course Hospital course: Mr. Patel is a 35 y/o male with PMH multiple neck/spinal surgeries, HTN who presents with throbbing right sided lower flank pain that radiates anteriorly to abdomen and posteriorly to back. Sudden onset, associated with diaphoresis, difficulty taking a deep breath 2/2 pain. ED course: Afebrile. HR 103, RR 26, BP 186/118 --> 195/131. Labs significant for WBC 13.3, hgb 16.2, AST 51, ALT 94, TSH 5.48. Coag, troponin x2, T4, lactic acid WNL. Met SIRS criteria. UA 2+ blood, 95 RBC. UDS + opiates and fentanyl (given in ED). Pending blood cx. EKG NSR HR 90, QTc 444. CTA c/a/p mild nonspecific diffuse colitis pattern. Scattered colonic diverticulosis. Linear opacities may represent embolization anterior to left psoas extending into pelvis into a fat- containing inguinal hernia on left. Noncalcified pulmonary nodules 4 mm LLL and 5 mm RLL. Hepatomegaly with fatty infiltration. No renal or ureteral calculi, normal appendix, no thoracic aortic aneurysm dilation or dissection, no pancreatic or adrenal mass, no bowel obstruction or diverticulitis. Contracted urinary bladder. No PE. Given morphine 4 mg IV, 2L LR, dilaudid 1 mg IV x2, fentanyl 100 mcg IV x2, Zosyn 4 mg IV x1. Hospital Course: The next day after admission, patient's symptom has completely resolved. CT abd/pelvis (05/19/2025) showed No thoracic aortic aneurysm dilatation, Negative for pulmonary artery emboli, Noncalcified pulmonary nodules (4 mm pulmonary nodule left lower lobe, 6 mm pulmonary nodule right lower lobe) , Hepatomegaly with diffuse fatty infiltration, No renal or ureteral calculi, no hydronephrosis, Normal appendix, Mild nonspecific diffuse colitis pattern. Patient received IV ciprofloxacin 400 mg q12HR and IV metronidazole 500 mg Q8HR, Losartan 25mg po qd. Instructions: Please take ciprofloxacin 500 mg tablet twice a day and metronidazole 500 mg twice a day for colitis; as per PCP you need to be referred to GI for colonoscopy Please continue all home medications as prescribed Follow-up with your PCP within 1 week of discharge or follow-up at the [facility] [address] [place] [address] Please ask your PCP to monitor your liver function as you have MASLD and could benefit from diet regimen and weight loss Please ask your PCP for follow-up PA lateral chest x-ray to monitor for pulmonary nodule seen incidentally on CT imaging If your symptoms worsen or if you develop any chest pain, shortness of breath, severe abdominal pain or bleeding - please come back to the ED immediately #Flank pain #Hypertension urgency vs emergency #Sepsis #Microscopic hematuria #Obesity #Noncalcified pulmonary nodules 4 mm LLL and 5 mm RLL #Hepatomegaly Assessment and plan discussed with my attending physician Dr. Silviano Hoover (PGY-1) - Internal medicine resident Status at Discharge Overall status at discharge: patient is back to baseline Time Spent with Patient Time attestation: Total time spent providing and/or coordinating discharge services: Time spent: Greater than 30 minutes Exam Vital Signs Temp Pulse Resp BP Pulse Ox O2 Del Method 97.2 F 73 18 126/80 96 Room Air 05/20/25 08:00 05/20/25 09:08 05/20/25 08:00 05/20/25 09:08 05/20/25 08:00 05/20/25 08:00 Narrative Exam General: No acute distress, well nourished, AAO x3 Eye: normal conjunctiva, no scleral icterus HENT: Normocephalic, atraumatic, hearing intact to conversation at normal volume, moist oral mucosa Neck: Supple, non-tender, no JVD, no lymphadenopathy Lungs: Non-labored respirations, symmetric chest rise, Clear to auscultate bilaterally, No wheezing, rhonchi, crackles Heart: Peripheral pulses intact bilaterally, Regular Rate and Rhythm. Abdomen: Soft, non-tender, non-distended, no palpable masses Musculoskeletal: Normal range of motion and strength, No cyanosis or edema, No visible joint swelling Skin: Skin is warm, dry, no rashes or lesions. Psychiatric: Cooperative, appropriate mood and affect, Awake and alert, not agitated Neuro: Cranial nerves II-XII grossly intact. Strength 5/5 throughout. Sensations intact to light touch. Discharge Plan Plan Patient Disposition: HOME (Self Care) Patient condition on transfer: Stable Care Plan Goals: Please take ciprofloxacin 500 mg tablet twice a day and metronidazole 500 mg twice a day for colitis; as per PCP you need to be referred to GI for colonoscopy Please continue all home medications as prescribed Follow-up with your PCP within 1 week of discharge or follow-up at the [facility] [address] [place], [place] [id number] Please ask your PCP to monitor your liver function as you have MASLD and could benefit from diet regimen and weight loss Please ask your PCP for follow-up PA lateral chest x-ray to monitor for pulmonary nodule seen incidentally on CT imaging If your symptoms worsen or if you develop any chest pain, shortness of breath, s evere abdominal pain or bleeding - please come back to the ED immediately Prescriptions/Referrals Prescriptions/Med Rec: New ciprofloxacin HCl 500 mg tablet 500 mg PO BID 14 Days Qty: 28 0RF metronidazole 500 mg tablet 500 mg PO BID 14 Days Qty: 28 0RF Continued losartan 25 mg tablet 25 mg PO HS Patient Comments: TAKE 1 TABLET BY MOUTH EVERY DAY duloxetine 60 mg capsule,delayed release(DR/EC) 60 mg PO QDAY Patient Comments: TAKE 1 CAPSULE BY MOUTH EVERY DAY montelukast 10 mg tablet 10 mg PO QDAY Patient Comments: TAKE 1 TABLET BY MOUTH EVERY DAY Referrals: Teresa Carranza MD [Primary Care Provider, Family Practice] Patient/Caregiver Discharge Instructions Education Materials: Understanding Colitis Print Language: Icelandic Stand Alone Forms: Jackie Award Info., Patient Portal Info Letter, Work/Release Restrictions Discharge Order Discharge Orders: Discharge (Routine); Ordered 05/20/25 Ordered By: Fili Hunter Quality Discharge Quality Measures VTE prophylaxis
== END 2025-05-20 15:00 | disposition home or self-care (01) ==
LOC: SERX 18:48 → SERHOLD 23:22 → S3SX 05-20 04:06 → SERHOLD 05-20 06:34
PROVIDERS: Emergency Medicine; Admitting Provider Internal Medicine; Emergency Provider Emergency Medicine; PCP Family Medicine; Visit Provider Internal Medicine
DX: K52.9 Noninfective gastroenteritis and colitis, unspecified (principal); K76.0 Fatty (change of) liver, not elsewhere classified; R91.8 Other nonspecific abnormal finding of lung field; I10 Essential (primary) hypertension; K57.30 Diverticulosis of large intestine without perforation or abscess without bleeding; N32.89 Other specified disorders of bladder; E66.01 Morbid (severe) obesity due to excess calories; Z68.42 Body mass index [BMI] 45.0-49.9, adult
CPT/HCPCS: 36415; 71275; 74174; 80053; 80061; 80307; 81001; 83036; 83605; 83735; 84100; 84436; 84443; 84484; 84550; 85025; 85610; 87040; 93005; 96361; 96365; 96366; 96372; 96375; 96376; 99283; A4649; G0378; J0744; J1171; J1644; J2270; J2543; J2765; J3010; J3490; J7120; Q9967; A9270; J1836

== ENCOUNTER → 2025-06-05 | Outpatient (CLI) | payer BC, SELFPAY ==
--- NOTE | 2025-06-05 14:30 | XR_ITS ---
Examination: CT abdomen and pelvis without contrast. Coronal 3-D reconstructions. Sagittal 2-D reconstructions. Date and time of exam: June 05, 2025, 1410 hours INDICATIONS: Right-sided flank pain beginning 3 weeks ago COMPARISON: May 19, 2025 CTDI: vol (mGy): 18.6 DLP: (mGycm): 1318 Technique: Axial images of the abdomen have been obtained, 3 mm slice thickness Intravenous contrast material has not been administered. Low dose protocols were performed. One or more of the following dose reduction techniques were used; automated exposure control, adjustment of the mA and/or KV according to patient size, use of iterative reconstruction technique. Findings: Fatty infiltration throughout the liver Absent gallbladder No pancreatic or adrenal mass Mild renal scar formation No renal or ureteral calculi, no hydronephrosis Aorta normal size Normal appendix Scattered colonic diverticulosis, no diverticulitis No bladder mass or bladder calculi No prostatomegaly Fat-containing inguinal hernias Moderate disc narrowing L3-L4, L4-L5, L5-S1 IMPRESSION: No renal or ureteral calculi, no hydronephrosis Mild renal scar formation Normal appendix No bowel obstruction diverticulitis or free air
== END | disposition home or self-care (01) ==
LOC: SCAT 13:56
PROVIDERS: PCP Family Medicine; Referring Provider Student in an Organized Health Care Education/Training Program; Visit Provider Student in an Organized Health Care Education/Training Program
DX: N28.89 Other specified disorders of kidney and ureter (principal)
CPT/HCPCS: 74176